=== PATIENT | male | born 1960 | race African-American/Black ===

== ENCOUNTER 2021-02-14 16:14 | Inpatient (IN) | payer OTHER ==
[2021-02-14] MEDS ORDERED: MAGNESIUM CITRATE 300 ML BOTTLE PO PRN (18:17)
[2021-02-14] MEDS ORDERED: MAG HYDROX/AL HYDROX/SIMETH 30 ML UNIT-DOSE CUP PO PRN (18:17)
[2021-02-14] MEDS ORDERED: BISMUTH SUBSALICYLATE 524 MG/30 ML PO PRN (18:17)
[2021-02-14] MEDS ORDERED: ONDANSETRON *ODT* 4 MG TABLET SL PRN (18:17)
[2021-02-14] MEDS ORDERED: MAGNESIUM HYDROX 2400MG/30ML ORAL SUSPENSION 30 ML CUP PO PRN (18:17)
[2021-02-14] MEDS ORDERED: ACETAMINOPHEN 325 MG TABLET (FP) PO PRN ×2 (18:17)
[2021-02-14] MEDS ORDERED: IBUPROFEN 400 MG TABLET (FP) PO PRN (18:17)
[2021-02-14] MEDS ORDERED: MENTHOL/PHENOL 1 EACH UD MM PRN (18:17)
[2021-02-14 19:13] VITALS: BMI 19.6
[2021-02-14] MEDS: PRENATAL VITAMINS W/ FOLIC ACID TABLET (FP) PO SCH (21:03)
[2021-02-14] MEDS: MELATONIN 5 MG TABLETS PO SCH (21:04)
[2021-02-14] MEDS: THIAMINE HCL 100 MG TABLET (FP) PO SCH (21:04)
[2021-02-14] MEDS: hydrOXYzine PAMOATE 25 MG CAPSULE (FP) PO SCH (21:04)
[2021-02-15] MEDS: hydrOXYzine PAMOATE 25 MG CAPSULE (FP) PO SCH ×5 (06:42→23:00)
[2021-02-15] MEDS: amLODIPine BESYLATE 5 MG TABLET (FP) PO SCH (10:18)
[2021-02-15] MEDS: PRENATAL VITAMINS W/ FOLIC ACID TABLET (FP) PO SCH (10:18)
[2021-02-15] MEDS ORDERED: diazePAM 5 MG TABLET PO PRN (10:20)
[2021-02-15 10:58] LABS: HEMATOCRIT 29.5 % (35.4-49); HEMOGLOBIN 9.5 GM/dL (11.7-16.9); MCH 26.4 pg (25.7-33.7); MCHC 32.1 g/dl (32.0-35.9); MEAN CELL VOLUME 82.3 fl (80-96); MEAN PLT VOLUME 8.5 fl (7.5-11.1); PLATELET COUNT 164 10^3/uL (134-434); RBC 3.58 M/mm3 (4.00-5.60); RDW 14.6 % (11.9-15.9); WHITE BLOOD COUNT 4.4 K/mm3 (4.0-10.0)
[2021-02-15 11:45] LABS: ALBUMIN 3.2 g/dl (3.4-5.0)
[2021-02-15 11:46] LABS: BLOOD UREA NITROGEN 20.4 mg/dL (7-18)
[2021-02-15 11:48] LABS: CREATININE 1.1 mg/dL (0.55-1.3)
[2021-02-15 11:49] LABS: BILIRUBIN,TOTAL 0.6 mg/dL (0.2-1); TOT PROT 6.8 g/dl (6.4-8.2)
[2021-02-15] MEDS: diazePAM 5 MG TABLET PO SCH ×3 (13:01→23:00)
[2021-02-15] MEDS: MELATONIN 5 MG TABLETS PO SCH (23:00)
[2021-02-15] MEDS: THIAMINE HCL 100 MG TABLET (FP) PO SCH (23:00)
[2021-02-16] MEDS: hydrOXYzine PAMOATE 25 MG CAPSULE (FP) PO SCH ×5 (05:15→22:59)
[2021-02-16] MEDS: diazePAM 5 MG TABLET PO SCH ×4 (05:15→22:59)
[2021-02-16] MEDS: amLODIPine BESYLATE 5 MG TABLET (FP) PO SCH (10:51)
[2021-02-16] MEDS: PRENATAL VITAMINS W/ FOLIC ACID TABLET (FP) PO SCH (10:52)
[2021-02-16] MEDS ORDERED: TRIMETHOBENZAMIDE HCL 300 MG CAPSULE PO ONE (19:06)
[2021-02-16] MEDS ORDERED: TRIMETHOBENZAMIDE HCL 200MG/2ML INJ IM ONE (19:13)
[2021-02-16] MEDS: THIAMINE HCL 100 MG TABLET (FP) PO SCH (22:59)
[2021-02-16] MEDS: MELATONIN 5 MG TABLETS PO SCH (22:59)
[2021-02-17] MEDS: diazePAM 5 MG TABLET PO SCH ×3 (07:27→23:23)
[2021-02-17] MEDS: hydrOXYzine PAMOATE 25 MG CAPSULE (FP) PO SCH ×5 (07:29→23:24)
[2021-02-17] MEDS: amLODIPine BESYLATE 5 MG TABLET (FP) PO SCH (10:37)
[2021-02-17] MEDS: PRENATAL VITAMINS W/ FOLIC ACID TABLET (FP) PO SCH (10:37)
[2021-02-17] MEDS: MELATONIN 5 MG TABLETS PO SCH (23:23)
[2021-02-17] MEDS: THIAMINE HCL 100 MG TABLET (FP) PO SCH (23:24)
[2021-02-18] MEDS: diazePAM 5 MG TABLET PO SCH ×2 (05:58→18:09)
[2021-02-18] MEDS: hydrOXYzine PAMOATE 25 MG CAPSULE (FP) PO SCH ×5 (05:58→22:09)
[2021-02-18] MEDS: amLODIPine BESYLATE 5 MG TABLET (FP) PO SCH (09:46)
[2021-02-18] MEDS: METHOCARBAMOL 500 MG TABLET PO PRN ×2 (09:46→22:09)
[2021-02-18] MEDS: PRENATAL VITAMINS W/ FOLIC ACID TABLET (FP) PO SCH (09:47)
[2021-02-18] MEDS: THIAMINE HCL 100 MG TABLET (FP) PO SCH (22:09)
[2021-02-18] MEDS: MELATONIN 5 MG TABLETS PO SCH (22:09)
[2021-02-19] MEDS: hydrOXYzine PAMOATE 25 MG CAPSULE (FP) PO SCH ×2 (05:20→10:03)
[2021-02-19] MEDS ORDERED: diazePAM 5 MG TABLET PO ONE (06:00)
[2021-02-19 08:56] VITALS: BP 97/65; PULSE 105; TEMP 97.1
[2021-02-19] MEDS: PRENATAL VITAMINS W/ FOLIC ACID TABLET (FP) PO SCH (10:03)
[2021-02-19] MEDS: amLODIPine BESYLATE 5 MG TABLET (FP) PO SCH (10:03)
== END 2021-02-19 09:36 | disposition home or self-care (01) | DRG 775 ==
LOC: YASAS 16:14 → UNDOADMIN 19:12 → Y6N 19:12 → Y3N 19:37 → Y6N 19:37
PROVIDERS: ADMIT Allergy & Immunology; ATTEND Allergy & Immunology
PROC: HZ2ZZZZ Detoxification Services for Substance Abuse Treatment (ICD-10-PCS; principal; 2021-02-14)
DX: F10.230 Alcohol dependence with withdrawal, uncomplicated (principal); F12.10 Cannabis abuse, uncomplicated; F17.210 Nicotine dependence, cigarettes, uncomplicated; E88.09 Other disorders of plasma-protein metabolism, not elsewhere classified; D64.9 Anemia, unspecified; I10 Essential (primary) hypertension; K74.60 Unspecified cirrhosis of liver; M54.50 Low back pain, unspecified; M25.512 Pain in left shoulder; G89.29 Other chronic pain; Z86.19 Personal history of other infectious and parasitic diseases
CPT/HCPCS: 36415; 80053; 82746; 83540; 83550; 84520; 85027; 85045; 86780; C9803; U0003; U0005

== ENCOUNTER 2021-02-27 14:38 | Inpatient (IN) | payer OTHER ==
[2021-02-27] MEDS ORDERED: BISMUTH SUBSALICYLATE 262 MG/15 ML BTL PO PRN (15:09)
[2021-02-27] MEDS ORDERED: MAGNESIUM HYDROX 2400MG/30ML ORAL SUSPENSION 30 ML CUP PO PRN (15:09)
[2021-02-27] MEDS ORDERED: MENTHOL/PHENOL 1 EACH UD MM PRN (15:09)
[2021-02-27] MEDS ORDERED: ACETAMINOPHEN 325 MG TABLET (FP) PO PRN ×2 (15:09)
[2021-02-27] MEDS ORDERED: METHOCARBAMOL 500 MG TABLET PO PRN (15:09)
[2021-02-27] MEDS ORDERED: MAGNESIUM CITRATE 300 ML BOTTLE PO PRN (15:09)
[2021-02-27] MEDS ORDERED: NICOTINE 10 MG CARTRIDGE (INHALER) IH PRN (15:09)
[2021-02-27] MEDS ORDERED: ONDANSETRON *ODT* 4 MG TABLET SL PRN (15:09)
[2021-02-27] MEDS ORDERED: MAG HYDROX/AL HYDROX/SIMETH 30 ML UNIT-DOSE CUP PO PRN (15:09)
[2021-02-27] MEDS ORDERED: IBUPROFEN 400 MG TABLET (FP) PO PRN (15:09)
[2021-02-27 15:36] VITALS: BMI 20.5
[2021-02-27] MEDS ORDERED: PNEUMOCOCCAL 23 VACCINE 0.5 ML VIAL IM ONE (16:19)
[2021-02-27] MEDS: hydrOXYzine PAMOATE 25 MG CAPSULE (FP) PO SCH ×2 (17:56→22:19)
[2021-02-27] MEDS: PRENATAL VITAMINS W/ FOLIC ACID TABLET (FP) PO SCH (17:56)
[2021-02-27] MEDS: HYDROCHLOROTHIAZIDE 25 MG TABLET (FP) PO SCH (17:58)
[2021-02-27] MEDS: THIAMINE HCL 100 MG TABLET (FP) PO SCH (22:19)
[2021-02-27] MEDS: MELATONIN 5 MG TABLETS PO SCH (22:19)
[2021-02-28] MEDS: hydrOXYzine PAMOATE 25 MG CAPSULE (FP) PO SCH ×5 (05:41→22:45)
[2021-02-28] MEDS: PRENATAL VITAMINS W/ FOLIC ACID TABLET (FP) PO SCH (10:22)
[2021-02-28] MEDS: HYDROCHLOROTHIAZIDE 25 MG TABLET (FP) PO SCH (10:23)
[2021-02-28 12:20] LABS: HEMATOCRIT 32.5 % (35.4-49); HEMOGLOBIN 10.6 GM/dL (11.7-16.9); MCH 26.5 pg (25.7-33.7); MCHC 32.7 g/dl (32.0-35.9); MEAN PLT VOLUME 8.5 fl (7.5-11.1); PLATELET COUNT 227 10^3/uL (134-434); RBC 4.02 M/mm3 (4.00-5.60); RDW 13.7 % (11.9-15.9); WHITE BLOOD COUNT 6.1 K/mm3 (4.0-10.0)
[2021-02-28 12:21] LABS: BLOOD UREA NITROGEN 16.1 mg/dL (7-18)
[2021-02-28 12:23] LABS: CALCIUM 9.3 mg/dL (8.5-10.1)
[2021-02-28 12:24] LABS: CREATININE 1.2 mg/dL (0.55-1.3)
[2021-02-28 12:26] LABS: BILIRUBIN,TOTAL 0.7 mg/dL (0.2-1)
[2021-02-28 12:27] LABS: RETICULOCYTES 0.57 % (0.5-1.5)
[2021-02-28 12:29] LABS: ALBUMIN 3.8 g/dl (3.4-5.0)
[2021-02-28] MEDS ORDERED: PNEUMOCOCCAL 23 VACCINE 0.5 ML VIAL IM ONE (13:00)
[2021-02-28] MEDS: MELATONIN 5 MG TABLETS PO SCH (22:45)
[2021-02-28] MEDS: THIAMINE HCL 100 MG TABLET (FP) PO SCH (22:45)
[2021-03-01] MEDS: hydrOXYzine PAMOATE 25 MG CAPSULE (FP) PO SCH ×2 (06:04→10:09)
[2021-03-01] MEDS: HYDROCHLOROTHIAZIDE 25 MG TABLET (FP) PO SCH (10:09)
[2021-03-01] MEDS: PRENATAL VITAMINS W/ FOLIC ACID TABLET (FP) PO SCH (10:09)
[2021-03-01 12:57] VITALS: BP 122/72; PULSE 72; TEMP 97.3
== END 2021-03-01 13:00 | disposition other institution (70) | DRG 775 ==
LOC: YASAS 14:38 → Y6N 15:27 → UNDOADMIN 15:27 → Y6N 16:01
PROVIDERS: ADMIT Allergy & Immunology; ATTEND Allergy & Immunology
PROC: HZ2ZZZZ Detoxification Services for Substance Abuse Treatment (ICD-10-PCS; principal; 2021-02-27)
DX: F10.230 Alcohol dependence with withdrawal, uncomplicated (principal); F12.10 Cannabis abuse, uncomplicated; F17.210 Nicotine dependence, cigarettes, uncomplicated; I10 Essential (primary) hypertension; E78.5 Hyperlipidemia, unspecified; D64.9 Anemia, unspecified; M25.511 Pain in right shoulder; G89.29 Other chronic pain; R74.01 Elevation of levels of liver transaminase levels; Z85.46 Personal history of malignant neoplasm of prostate; Z86.19 Personal history of other infectious and parasitic diseases; Z87.19 Personal history of other diseases of the digestive system
CPT/HCPCS: 36415; 80053; 82728; 83540; 83550; 83615; 85027; 85045; 86780; 90732; C9803; G0009; U0003; U0005

== ENCOUNTER 2021-03-01 12:30 | Inpatient (IN) | payer OTHER ==
[2021-03-01] MEDS ORDERED: LOPERAMIDE HCL 2 MG CAPSULE PO PRN (14:02)
[2021-03-01] MEDS ORDERED: MAGNESIUM HYDROX 2400MG/30ML ORAL SUSPENSION 30 ML CUP PO PRN (14:02)
[2021-03-01] MEDS ORDERED: MAG HYDROX/AL HYDROX/SIMETH 30 ML UNIT-DOSE CUP PO PRN (14:02)
[2021-03-01] MEDS ORDERED: MENTHOL/PHENOL 1 EACH UD MM PRN (14:02)
[2021-03-01] MEDS ORDERED: ACETAMINOPHEN 325 MG TABLET (FP) PO PRN (14:02)
[2021-03-01] MEDS ORDERED: P-EPHED 60MG/TRIPROLIDI 2.5MG TABLET PO PRN (14:02)
[2021-03-01] MEDS ORDERED: guaiFENesin 200 MG/10 ML 10 ML UNIT-DOSE CUPS PO PRN (14:02)
[2021-03-01] MEDS ORDERED: MAGNESIUM CITRATE 300 ML BOTTLE PO PRN (14:02)
[2021-03-01] MEDS ORDERED: NICOTINE 10 MG CARTRIDGE (INHALER) IH PRN (14:02)
[2021-03-01] MEDS: METHOCARBAMOL 500 MG TABLET PO SCH ×2 (18:55→21:19)
[2021-03-01] MEDS: THIAMINE HCL 100 MG TABLET (FP) PO SCH (21:18)
[2021-03-01] MEDS: MELATONIN 5 MG TABLETS PO SCH (21:18)
[2021-03-02] MEDS: hydrOXYzine PAMOATE 25 MG CAPSULE (FP) PO PRN (01:20)
[2021-03-02] MEDS: PRENATAL VITAMINS W/ FOLIC ACID TABLET (FP) PO SCH (10:15)
[2021-03-02] MEDS: amLODIPine BESYLATE 5 MG TABLET (FP) PO SCH (10:15)
[2021-03-02] MEDS: METHOCARBAMOL 500 MG TABLET PO SCH ×4 (10:16→22:50)
[2021-03-02] MEDS: HYDROCHLOROTHIAZIDE 12.5 MG CAPSULE (FP) PO SCH (10:16)
[2021-03-02] MEDS: NICOTINE 7 MG/24 HOURS TOPICAL PATCH TD SCH (10:16)
[2021-03-02] MEDS: THIAMINE HCL 100 MG TABLET (FP) PO SCH (22:50)
[2021-03-02] MEDS: MELATONIN 5 MG TABLETS PO SCH (22:50)
[2021-03-03] MEDS: HYDROCHLOROTHIAZIDE 12.5 MG CAPSULE (FP) PO SCH (09:41)
[2021-03-03] MEDS: METHOCARBAMOL 500 MG TABLET PO SCH ×4 (09:41→22:47)
[2021-03-03] MEDS: amLODIPine BESYLATE 5 MG TABLET (FP) PO SCH (09:41)
[2021-03-03] MEDS: PRENATAL VITAMINS W/ FOLIC ACID TABLET (FP) PO SCH (09:41)
[2021-03-03] MEDS: NICOTINE 7 MG/24 HOURS TOPICAL PATCH TD SCH (10:25)
[2021-03-03] MEDS: MELATONIN 5 MG TABLETS PO SCH (22:47)
[2021-03-03] MEDS: THIAMINE HCL 100 MG TABLET (FP) PO SCH (22:47)
[2021-03-04] MEDS: PRENATAL VITAMINS W/ FOLIC ACID TABLET (FP) PO SCH (10:28)
[2021-03-04] MEDS: NICOTINE 7 MG/24 HOURS TOPICAL PATCH TD SCH (10:28)
[2021-03-04] MEDS: HYDROCHLOROTHIAZIDE 12.5 MG CAPSULE (FP) PO SCH (10:28)
[2021-03-04] MEDS: amLODIPine BESYLATE 5 MG TABLET (FP) PO SCH (10:28)
[2021-03-04] MEDS: METHOCARBAMOL 500 MG TABLET PO SCH ×4 (10:29→21:16)
[2021-03-04] MEDS: MELATONIN 5 MG TABLETS PO SCH (21:16)
[2021-03-04] MEDS: THIAMINE HCL 100 MG TABLET (FP) PO SCH (21:16)
[2021-03-05] MEDS: HYDROCHLOROTHIAZIDE 12.5 MG CAPSULE (FP) PO SCH (09:49)
[2021-03-05] MEDS: PRENATAL VITAMINS W/ FOLIC ACID TABLET (FP) PO SCH (09:49)
[2021-03-05] MEDS: METHOCARBAMOL 500 MG TABLET PO SCH ×4 (09:49→21:35)
[2021-03-05] MEDS: NICOTINE 7 MG/24 HOURS TOPICAL PATCH TD SCH (09:49)
[2021-03-05] MEDS: amLODIPine BESYLATE 5 MG TABLET (FP) PO SCH (09:49)
[2021-03-05] MEDS: IBUPROFEN 400 MG TABLET (FP) PO PRN (09:50)
[2021-03-05] MEDS: MELATONIN 5 MG TABLETS PO SCH (21:35)
[2021-03-05] MEDS: THIAMINE HCL 100 MG TABLET (FP) PO SCH (21:35)
[2021-03-06] MEDS: HYDROCHLOROTHIAZIDE 12.5 MG CAPSULE (FP) PO SCH (10:10)
[2021-03-06] MEDS: PRENATAL VITAMINS W/ FOLIC ACID TABLET (FP) PO SCH (10:10)
[2021-03-06] MEDS: METHOCARBAMOL 500 MG TABLET PO SCH ×4 (10:10→21:12)
[2021-03-06] MEDS: amLODIPine BESYLATE 5 MG TABLET (FP) PO SCH (10:10)
[2021-03-06] MEDS: IBUPROFEN 400 MG TABLET (FP) PO PRN (10:11)
[2021-03-06] MEDS: NICOTINE 7 MG/24 HOURS TOPICAL PATCH TD SCH (10:12)
[2021-03-06] MEDS: hydrOXYzine PAMOATE 25 MG CAPSULE (FP) PO PRN (14:07)
[2021-03-06] MEDS: THIAMINE HCL 100 MG TABLET (FP) PO SCH (21:12)
[2021-03-06] MEDS: MELATONIN 5 MG TABLETS PO SCH (21:12)
[2021-03-07] MEDS: METHOCARBAMOL 500 MG TABLET PO SCH ×4 (10:31→21:22)
[2021-03-07] MEDS: PRENATAL VITAMINS W/ FOLIC ACID TABLET (FP) PO SCH (10:31)
[2021-03-07] MEDS: NICOTINE 7 MG/24 HOURS TOPICAL PATCH TD SCH (10:32)
[2021-03-07] MEDS: amLODIPine BESYLATE 5 MG TABLET (FP) PO SCH (10:32)
[2021-03-07] MEDS: HYDROCHLOROTHIAZIDE 12.5 MG CAPSULE (FP) PO SCH (10:32)
[2021-03-07] MEDS: THIAMINE HCL 100 MG TABLET (FP) PO SCH (21:22)
[2021-03-07] MEDS: MELATONIN 5 MG TABLETS PO SCH (21:22)
[2021-03-08] MEDS: NICOTINE 7 MG/24 HOURS TOPICAL PATCH TD SCH (09:43)
[2021-03-08] MEDS: amLODIPine BESYLATE 5 MG TABLET (FP) PO SCH (09:43)
[2021-03-08] MEDS: METHOCARBAMOL 500 MG TABLET PO SCH ×4 (09:43→21:33)
[2021-03-08] MEDS: PRENATAL VITAMINS W/ FOLIC ACID TABLET (FP) PO SCH (09:43)
[2021-03-08] MEDS: HYDROCHLOROTHIAZIDE 12.5 MG CAPSULE (FP) PO SCH (09:43)
[2021-03-08] MEDS: MELATONIN 5 MG TABLETS PO SCH (21:33)
[2021-03-08] MEDS: THIAMINE HCL 100 MG TABLET (FP) PO SCH (21:33)
[2021-03-09] MEDS: amLODIPine BESYLATE 5 MG TABLET (FP) PO SCH (09:59)
[2021-03-09] MEDS: HYDROCHLOROTHIAZIDE 12.5 MG CAPSULE (FP) PO SCH (09:59)
[2021-03-09] MEDS: NICOTINE 7 MG/24 HOURS TOPICAL PATCH TD SCH (09:59)
[2021-03-09] MEDS: METHOCARBAMOL 500 MG TABLET PO SCH ×4 (09:59→21:42)
[2021-03-09] MEDS: PRENATAL VITAMINS W/ FOLIC ACID TABLET (FP) PO SCH (10:00)
[2021-03-09] MEDS: THIAMINE HCL 100 MG TABLET (FP) PO SCH (21:42)
[2021-03-09] MEDS: MELATONIN 5 MG TABLETS PO SCH (21:42)
[2021-03-10] MEDS: METHOCARBAMOL 500 MG TABLET PO SCH ×4 (09:40→21:21)
[2021-03-10] MEDS: PRENATAL VITAMINS W/ FOLIC ACID TABLET (FP) PO SCH (09:40)
[2021-03-10] MEDS: HYDROCHLOROTHIAZIDE 12.5 MG CAPSULE (FP) PO SCH (09:40)
[2021-03-10] MEDS: amLODIPine BESYLATE 5 MG TABLET (FP) PO SCH (09:40)
[2021-03-10] MEDS: NICOTINE 7 MG/24 HOURS TOPICAL PATCH TD SCH (09:41)
[2021-03-10] MEDS: THIAMINE HCL 100 MG TABLET (FP) PO SCH (21:20)
[2021-03-10] MEDS: MELATONIN 5 MG TABLETS PO SCH (21:21)
[2021-03-11] MEDS: HYDROCHLOROTHIAZIDE 12.5 MG CAPSULE (FP) PO SCH (10:05)
[2021-03-11] MEDS: amLODIPine BESYLATE 5 MG TABLET (FP) PO SCH (10:05)
[2021-03-11] MEDS: PRENATAL VITAMINS W/ FOLIC ACID TABLET (FP) PO SCH (10:05)
[2021-03-11] MEDS: NICOTINE 7 MG/24 HOURS TOPICAL PATCH TD SCH (10:06)
[2021-03-11] MEDS: METHOCARBAMOL 500 MG TABLET PO SCH ×4 (10:06→21:18)
[2021-03-11] MEDS: MELATONIN 5 MG TABLETS PO SCH (21:18)
[2021-03-11] MEDS: THIAMINE HCL 100 MG TABLET (FP) PO SCH (21:18)
[2021-03-12] MEDS: amLODIPine BESYLATE 5 MG TABLET (FP) PO SCH (10:27)
[2021-03-12] MEDS: NICOTINE 7 MG/24 HOURS TOPICAL PATCH TD SCH (10:27)
[2021-03-12] MEDS: METHOCARBAMOL 500 MG TABLET PO SCH ×4 (10:27→21:23)
[2021-03-12] MEDS: PRENATAL VITAMINS W/ FOLIC ACID TABLET (FP) PO SCH (10:28)
[2021-03-12] MEDS: HYDROCHLOROTHIAZIDE 12.5 MG CAPSULE (FP) PO SCH (10:28)
[2021-03-12] MEDS: MELATONIN 5 MG TABLETS PO SCH (21:23)
[2021-03-12] MEDS: THIAMINE HCL 100 MG TABLET (FP) PO SCH (21:24)
[2021-03-13] MEDS: amLODIPine BESYLATE 5 MG TABLET (FP) PO SCH (10:11)
[2021-03-13] MEDS: NICOTINE 7 MG/24 HOURS TOPICAL PATCH TD SCH (10:11)
[2021-03-13] MEDS: PRENATAL VITAMINS W/ FOLIC ACID TABLET (FP) PO SCH (10:11)
[2021-03-13] MEDS: HYDROCHLOROTHIAZIDE 12.5 MG CAPSULE (FP) PO SCH (10:11)
[2021-03-13] MEDS: METHOCARBAMOL 500 MG TABLET PO SCH ×4 (10:11→21:12)
[2021-03-13] MEDS: THIAMINE HCL 100 MG TABLET (FP) PO SCH (21:12)
[2021-03-13] MEDS: MELATONIN 5 MG TABLETS PO SCH (21:12)
[2021-03-14] MEDS: PRENATAL VITAMINS W/ FOLIC ACID TABLET (FP) PO SCH (09:58)
[2021-03-14] MEDS: HYDROCHLOROTHIAZIDE 12.5 MG CAPSULE (FP) PO SCH (09:59)
[2021-03-14] MEDS: NICOTINE 7 MG/24 HOURS TOPICAL PATCH TD SCH (09:59)
[2021-03-14] MEDS: amLODIPine BESYLATE 5 MG TABLET (FP) PO SCH (09:59)
[2021-03-14] MEDS: METHOCARBAMOL 500 MG TABLET PO SCH ×4 (09:59→21:23)
[2021-03-14] MEDS: MELATONIN 5 MG TABLETS PO SCH (21:23)
[2021-03-14] MEDS: THIAMINE HCL 100 MG TABLET (FP) PO SCH (21:23)
[2021-03-15 07:02] VITALS: BP 141/67; PULSE 77; TEMP 98.8
[2021-03-15] MEDS: NICOTINE 7 MG/24 HOURS TOPICAL PATCH TD SCH (09:12)
[2021-03-15] MEDS: PRENATAL VITAMINS W/ FOLIC ACID TABLET (FP) PO SCH (09:12)
[2021-03-15] MEDS: HYDROCHLOROTHIAZIDE 12.5 MG CAPSULE (FP) PO SCH (09:12)
[2021-03-15] MEDS: amLODIPine BESYLATE 5 MG TABLET (FP) PO SCH (09:12)
[2021-03-15] MEDS: METHOCARBAMOL 500 MG TABLET PO SCH (09:12)
== END 2021-03-15 09:32 | disposition home or self-care (01) | DRG 772 ==
LOC: YASAS 12:30 → Y3W 12:32
PROVIDERS: ADMIT Allergy & Immunology; ATTEND Allergy & Immunology
PROC: HZ42ZZZ Group Counseling for Substance Abuse Treatment, Cognitive-Behavioral (ICD-10-PCS; principal; 2021-03-01)
DX: F10.20 Alcohol dependence, uncomplicated (principal); F12.10 Cannabis abuse, uncomplicated; F17.210 Nicotine dependence, cigarettes, uncomplicated; F39 Unspecified mood [affective] disorder; I10 Essential (primary) hypertension; E78.5 Hyperlipidemia, unspecified; M54.59 Other low back pain; G89.29 Other chronic pain; Z85.850 Personal history of malignant neoplasm of thyroid; Z86.19 Personal history of other infectious and parasitic diseases; Z59.00 Homelessness unspecified